=== PATIENT | male | born 1980 ===

== ENCOUNTER 2016-12-20 22:14 | Emergency (ER) | payer SELFPAY ==
[~2016-12-20] VITALS: Ht 157.5 cm; Wt 70.0 kg
[2016-12-20 22:23] VITALS: Ht 157.5 cm; Wt 70.0 kg
[2016-12-21] MEDS ORDERED: CEPH-443 PO (00:53)
[2016-12-21] MEDS ORDERED: IBUP-1542 PO (00:53)
[2016-12-21] MEDS ORDERED: HC30CR25 TOP (00:53)
[2016-12-21] MEDS ORDERED: BEN25 PO (00:53)
--- NOTE | 2016-12-21 01:01 | ERD ---
ER Documentation Chief Complaint Date/Time DATE: 12/21/16 TIME: 01:00 Chief Complaint bit by a spider to left upper arm x1 hr ago. HPI This is a 36 -year-old male who presents the emergency department today complaining of some pain and itchiness after being bitten by a spider earlier today. Patient has not taken a medication for the pain. States he has some pain in his armpit. Denies any fevers or chills. Denies any chest pain or shortness of breath. ROS All systems reviewed and are negative except as per history of present illness. Medications Home Meds Active Scripts Cephalexin* (Keflex*) 500 Mg Capsule, 500 MG PO QID for 7 Days, CAP Prov:VALENCIA MARTINEZ PA-C 12/21/16 Hydrocortisone* Topical (Hydrocortisone* Topical) 2.5%-28.3 Gm Cream..g., 1 APPLIC TOP BID for 7 Days, #1 TUB Prov:VALENCIA MARTINEZ PA-C 12/21/16 Diphenhydramine Hcl* (Benadryl*) 25 Mg Cap, 25 MG PO Q6, #30 CAP Prov:VALENCIA MARTINEZ PA-C 12/21/16 Ibuprofen* (Motrin*) 600 Mg Tab, 600 MG PO Q6, #30 TAB Prov:VALENCIA MARTINEZ PA-C 12/21/16 PMhx/Soc Medical and Surgical Hx: pt denies Medical Hx, pt denies Surgical Hx Hx Alcohol Use: Yes Hx Substance Use: No Hx Tobacco Use: Yes Smoking Status: Current some day smoker Physical Exam Vitals Vital Signs Date Time Temp Pulse Resp B/P Pulse Ox O2 Delivery O2 Flow Rate FiO2 12/20/16 22:23 97.6 72 20 136/95 99 Physical Exam Const: NAD Head: Atraumatic Eyes: Normal Conjunctiva ENT: Normal External Ears, Nose and Mouth. Neck: Full range of motion..~ No meningismus. Resp: Clear to auscultation bilaterally Cardio: Regular rate and rhythm, no murmurs Abd: Soft, non tender, non distended. Normal bowel sounds Skin: No petechiae or rashes Ext left anterior aspect of shoulder with evidence of insect bite with localized swelling and erythema. No evidence of lymph node swelling. Pulses 2+ . Distal neurovascularly intact. Neur: Awake and alert Psych: Normal Mood and Affect Procedures/MDM This is a 36-year-old male who presents to the emergency department today for a spider bite to the front part of his left shoulder. Patient brought the spider with him that he killed and is a very small spider does not appear to be a brown recluse or black . Patient is afebrile and otherwise well- appearing. Patient was driving himself and therefore did not medicate him here with Benadryl in the emergency department. His symptoms at this time is consistent with insect bite. He was complaining of some pain in his armpit however did not see evidence of any swollen lymph nodes or streaking. There was localized erythema and swelling and therefore I will treat the patient with antibiotics to cover him for possible early cellulitis. Patient was also given a prescription for Benadryl, hydrocortisone cream and Motrin. I have low suspicion for sepsis, deep space tracking infection, anaphylaxis, sepsis, meningitis, SJS. At this time the patient is stable for discharge and outpatient management. Patient should follow up with their PCP in the next 1-2 days. They may return to the emergency department sooner for any persistent or worsening of symptoms. Patient understood and agreed with the plan. Departure Diagnosis: Primary Impression: Spider bite Encounter type: initial encounter Injury intent: accidental or unintentional Qualified Code: T63.301A - Spider bite wound, accidental or unintentional, initial encounter Condition: Fair Patient Instructions: Spider Bite, Non-Poisonous [facility]errals[facility] Usted se lomax hecho un examen mdico de control que le indica que no est en traci condicin que requiera tratamiento urgente en el Departamento de Emergencia. Un estudio ms profundo y el tratamiento de avila condicin pueden esperar sin ningn riesgo hasta que usted sea atendida/o en el consultorio de avial mdico o traci cl shakira. Es responsabilidad suya arreglar traci danita para el seguimiento del heide. MANEJO DE CONDICIONES NO URGENTES EN EL FUTURO 1) Si usted tiene un mdico de atencin primaria: Usted debera llamar a avila mdico de atencin primaria antes de venir al departamento de emergencia. Despus de las horas de consultorio, avila doctor o avila asociado/a est disponible por telfono. El mdico o enfermero de brayan en el servicio telefnico puede asesorarle por marychuy medio para atender el problema, o heide contrario se puede programar traci danita. 2) Si usted no tiene un mdico de atencin primaria: Llame al mdico o clnica de referencia que aparece abajo prem las horas de consultorio para hacer traci danita para que le vean. CLINICAS: [place] [id number] [phone] [facility] [id number] [facility] [id number] [place] [address] [phone] [place] [id number] [phone] [facility] [phone] [address] Additional Instructions: Llame al doctor MAANA y shahla traci DANITA PARA DENTRO DE 1-2 DOWLING.Dgale a la secretaria que nosotros le instruimos hacer esta danita.Avise o llame si avila condicin se empeora antes de la danita. Regresa aqui si peor o no mejor. Take Naprosyn or Tylenol or Motrin for pain. Use hydrocortisone cream and Benadryl for itching and to help decrease swelling. Take antibiotics as prescribed. VALENCIA MARTINEZ PA-C Dec 21, 2016 01:01
== END 2016-12-21 01:08 | disposition home or self-care (01) ==
LOC: FTE 22:14
DX: T63.301A Toxic effect of unspecified spider venom, accidental (unintentional), initial encounter (principal); F17.210 Nicotine dependence, cigarettes, uncomplicated
CPT/HCPCS: 99283